=== PATIENT | male | born 1985 | race Caucasian/White ===

== ENCOUNTER 2016-06-19 16:54 | Emergency (ER) | payer SELFPAY ==
[2016-06-19 17:07] VITALS: BP 140/95
--- NOTE | 2016-06-19 17:43 | ER Document Report ---
ED General - General Chief Complaint: Rash Stated Complaint: RASH Notes: Patient is a 31-year-old male with past medical history of recurrent herpes zoster who presents with concerns of the same. States approximately every 1-2 years he developed zoster on his face and is typically treated with acyclovir and steroids with resolution. He has been tested for HIV in the past and has no history of immune compromise. He describes 2 small areas on his left face which have a constant, burning, itching pain. Nothing improves or worsens the pain. He denies any ocular involvement. Denies any headache, neck pain, confusion or fever. He has not seen a primary care doctor regarding today's concerns. TRAVEL OUTSIDE OF THE [place] IN LAST 30 DAYS: No - Related Data Allergies/Adverse Reactions: chlorpheniramine [From [facility]] Allergy (Mild, Verified 06/19/16 17: 04) Hives phenylephrine HCl [From [facility]] Allergy (Mild, Verified 06/19/16 17: 04) Hives phenylpropanolamine HCl [From [facility]] Allergy (Mild, Verified 17:04) Hives phenyltoloxamine [From [facility]] Allergy (Mild, Verified 06/19/16 17: 04) Hives Past Medical History - General Information source: Patient - Social History Smoking Status: Never Smoker Frequency of alcohol use: None Drug Abuse: None Lives with: Spouse/Significant other Family History: Arthritis, CAD, CVA, DM, Hyperlipidemia, Hypertension, Malignancy Patient has suicidal ideation: No Patient has homicidal ideation: No Renal/ Medical History: Denies: Hx Peritoneal Dialysis Musculoskeltal Medical History: Reports Hx Musculoskeletal Trauma - Immunizations Immunizations up to date: Yes Hx Diphtheria, Pertussis, Tetanus Vaccination: Yes Review of Systems - Review of Systems Notes: Constitutional: Negative for fever. HENT: Negative for sore throat. Eyes: Negative for visual changes. Cardiovascular: Negative for chest pain. Respiratory: Negative for shortness of breath. Gastrointestinal: Negative for abdominal pain, vomiting or diarrhea. Genitourinary: Negative for dysuria. Musculoskeletal: Negative for back pain. Skin: Positive for rash. Neurological: Negative for headaches, weakness or numbness. 10 point ROS negative except as marked above and in HPI. Physical Exam - Vital signs Vitals: Temp Pulse Resp BP Pulse Ox 98.9 F 91 18 140/95 H 97 06/19/16 17:05 06/19/16 17:05 06/19/16 17:05 06/19/16 17:05 06/19/16 17:05 Notes: PHYSICAL EXAMINATION: GENERAL: Well-appearing, well-nourished and in no acute distress. HEAD: Atraumatic, normocephalic. EYES: sclera anicteric, conjunctiva are normal. ENT: Moist mucous membranes. NECK: Normal range of motion LUNGS: Normal work of breathing HEART: 2+ radial pulses bilaterally EXTREMITIES: no pitting or edema. No cyanosis. NEUROLOGICAL: No focal neurological deficits. Moves all extremities spontaneously and on command. PSYCH: Normal mood, normal affect. SKIN: Warm, Dry, normal turgor, there are 2 small areas of vesicular lesions one just underneath the left eye and then 1 on the central forehead. No spreading erythema Course - Re-evaluation Re-evalutation: 06/19/16 17:38 Patient presents with symptoms most consistent with herpes zoster. He has vesicular lesions over the original nerve root distribution on the left. He has had this in the past. Will start acyclovir, prednisone, and recommend close outpatient follow-up. Patient has had HIV testing in the past which was negative. He is otherwise very well in appearance. No lesions to the left eye. At this time will discharge with return precautions and follow-up recommendations. Verbal discharge instructions given a the bedside and opportunity for questions given. Medication warnings reviewed. Patient is in agreement with this plan and has verbalized understanding of return precautions and the need for primary care follow-up in the next 24-72 hours. - Vital Signs Vital signs: Temp Pulse Resp BP Pulse Ox 98.9 F 91 18 140/95 H 97 06/19/16 17:05 06/19/16 17:05 06/19/16 17:05 06/19/16 17:05 06/19/16 17:05 Discharge - Discharge Clinical Impression: Herpes zoster Qualifiers: Herpes zoster complications: without complications Qualified Code(s): B02.9 - Zoster without complications Condition: Good Disposition: HOME, SELF-CARE Additional Instructions: Presentation is most consistent with shingles which is a reactivation of the chickenpox virus. Take the antiviral medication and the steroid as prescribed. Take ibuprofen 600 mg every 6 hours as needed for severe pain. You can also take ibuprofen 1000 mg every 6 hours as needed if the pain. Completely controlled by ibuprofen. Return to emergency department immediately if you develop confusion, fever greater than 101F, neck pain, severe headache or any other symptoms that are worrisome to you. Prescriptions: Acyclovir [Zovirax 800 mg Tablet] 800 mg PO 5XD #35 tab Prednisone [Deltasone 20 mg Tablet] 3 tab PO DAILY 5 Days
== END 2016-06-19 17:45 | disposition home or self-care (01) ==
LOC: ER 16:54
DX: B02.9 Zoster without complications (principal); Z88.8 Allergy status to other drugs, medicaments and biological substances
CPT/HCPCS: 99282